=== PATIENT | male | born 1955 | race Caucasian/White ===

== ENCOUNTER 2025-06-02 06:09 | Day surgery (SDC) | payer OTHER, SELFPAY ==
[2025-06-02] VITALS (16 sets, daily range): BP systolic 118–170; BP diastolic 75–108; BMI 25.1
[2025-06-02] MEDS: NSS 218 ML IV (07:04)
--- NOTE | 2025-06-02 08:05 | ITS.CL.CATH ---
[employer] - Catheterization
Cardiac Catheterization
Procedure Report:
CARDIAC CATHETERIZATION REPORT
Date of Procedure: 06/02/2025
Referring: Joon Magana D.O.
INDICATION: Dyspnea on exertion, abnormal stress test, coronary artery calcification.
PROCEDURE:
1. Left heart catheterization
2. Coronary angiography.
A total of 20 minutes of procedural/moderate sedation was utilized. An independent medical office assistant was present to assist with and help manage the patient's level of consciousness and physiologic status.
ACCESS:
1. 6 [place]is[place] right rate artery using a modified Seldinger technique.
CATHETERS:
1. 5 [place] JR4.
2. 5 [place]isian JL 3.5.
HEMODYNAMIC DATA
Weight (kg): 72.6
AO (s/d/x, mmHg): 144/90/114
LV (s/x mmHg): 151/10
LEFT VENTRICULOGRAPHY: Not performed.
CORONARY ANGIOGRAPHY
Dominance: Codominant.
Left Main: Large size, bifurcating vessel. There is no coronary artery disease.
LAD: Normal size vessel giving rise to several small diagonals. Of note, there is a hairpin turn in the mid vessel as well as a myocardial bridge immediately after this hairpin turn. There is no coronary artery disease.
Ramus: Congenitally absent.
Circumflex: Large size, codominant vessel giving rise to 1 obtuse marginal as well as a partial LPDA. There is no coronary artery disease.
RCA: Small to medium size, technically codominant vessel. There is virtually no AV groove coronary artery. The main body of the artery is a tortuous right ventricular marginal branch which courses along the anterior aspect of the heart to the
underside, becoming a partial RPDA and supplying the distal aspect of the interventricular septum.
INTERVENTION(S)
None.
Closure Device: Vascular band.
Radiation (mGy): 252.71
DAP (cm2.Gy): 20.8015
Fluoroscopy time (minutes): 1.8
CONCLUSIONS
1. Codominant circulation with no significant coronary artery disease, some tortuosity in the RCA as well as a hairpin turn in the mid LAD followed by a myocardial bridge.
2. Normal filling pressures (LVEDP = 10 mmHg at 72.6 kg).
RECOMMENDATIONS:
1. Expectant management after cardiac catheterization via right radial approach.
2. Limited weight bearing on the right wrist for one week.
3. No obvious cardiac source of dyspnea.
4. Consider primary pulmonary condition, possible PFTs.
5. Continue aspirin and rosuvastatin for aggressive primary prevention given known risk factors and coronary artery calcification seen on CT.
6. Maintain amlodipine and optimize CAD risk factors.
7. Stable for outpatient follow-up.
Copy to: Joon Magana D.O.
Juarez Tellez, DO, FACC, FACP
[2025-06-02] MEDS: NSS 1000 IV (08:54)
== END 2025-06-02 12:40 | disposition home or self-care (01) ==
LOC: CATH 06:09
PROVIDERS: ATTENDING PHYSICIAN Internal Medicine Cardiovascular Disease; FAMILY PHYSICIAN Registered Nurse; OTHER PHYSICIAN Internal Medicine Clinical Cardiac Electrophysiology
DX: R06.09 Other forms of dyspnea (principal); R94.39 Abnormal result of other cardiovascular function study; I10 Essential (primary) hypertension; E78.5 Hyperlipidemia, unspecified; I45.10 Unspecified right bundle-branch block; Z79.82 Long term (current) use of aspirin
CPT/HCPCS: 99152; C1894; 93458; Q9967